=== PATIENT | female | born 1960 | race Two or more races ===

== ENCOUNTER 2018-01-19 13:02 | Outpatient (CLI) | payer OTHER ==
[~2018-01-19 13:02] MED LIST: ALLOPURINOL100 MG; ARNUITY ELLIP100 MCG; AVAPRO75 MG; CYTRA-2 ORAL S473 ML; GILTUSS TR TAB1 EACH; KIONEX15 GM/60 M; SYNTHROID50 MCG; TRADJENTA5 MG
== END 2018-01-19 13:06 | disposition home or self-care (01) ==
LOC: SONOGRAMA 13:02
DX: C73 Malignant neoplasm of thyroid gland (principal)

== ENCOUNTER → 2018-03-02 | Outpatient (CLI) | payer OTHER | END | disposition home or self-care (01) | LOC: NUCLEAR 11:45 | DX: I48.0 Paroxysmal atrial fibrillation (principal) ==

== ENCOUNTER 2018-10-11 09:25 | Outpatient (CLI) | payer OTHER | END 2018-10-11 09:27 | disposition home or self-care (01) | LOC: NUCLEAR 09:25 | DX: I20.9 Angina pectoris, unspecified (principal) | CPT/HCPCS: 78452; 93017; A9500; J0153 ==

== ENCOUNTER → 2021-02-25 | Outpatient (CLI) | payer OTHER | END | disposition home or self-care (01) | LOC: NUCLEAR 08:31 | PROVIDERS: ATTEND Internal Medicine Cardiovascular Disease | DX: I20.8 Other forms of angina pectoris (principal); N18.6 End stage renal disease | CPT/HCPCS: 78452; 93017; A9500; J0153 ==